=== PATIENT | male | born 1965 | race Caucasian/White ===

== ENCOUNTER 2018-02-16 15:40 | Emergency (ER) | payer OTHER ==
--- NOTE | 2018-02-16 16:24 | EDM.PDOC ---
ED HPI GENERAL MEDICAL PROBLEM - General Chief Complaint: Laceration Stated Complaint: LEFT FINGER LAC Time Seen by Provider: 02/16/18 16:18 Source of Information: Reports: Patient History Limitations: Reports: No Limitations - History of Present Illness INITIAL COMMENTS - FREE TEXT/NARRATIVE: Patient is a 53-year-old male who presents ED complaining of a laceration to the distal phalanx of the left fourth finger. Patient states the finger was crushed between a 1 inch metal plate. He was evaluated at the occupational med clinic with instructions to come to the ED for further evaluation. Tetanus status was up-to-date. Pain is localized with no additional concerns to the remaining fingers or hand. Patient last ate at 12:30 today. Otherwise denies any additional combines. Left 4-Ring finger Pain Score (Numeric/FACES): 3 - Related Data Allergies Allergy/AdvReac Type Severity Reaction Status Date / Time acetaminophen [From Vicodin] Allergy Other Verified 02/16/18 16:06 hydrocodone [From Vicodin] Allergy Other Verified 02/16/18 16:06 Home Meds: Home Meds Cephalexin [Keflex] 500 mg PO TID #30 capsule 02/16/18 [Rx] traMADol HCl [Tramadol HCl] 50 mg PO Q6H PRN #20 tablet 02/16/18 [Rx] Past Medical History - Past Health History Medical/Surgical History: Denies Medical/Surgical History - Past Surgical History HEENT Surgical History: Reports: Cataract Surgery, Tonsillectomy GI Surgical History: Reports: Appendectomy, Cholecystectomy, Colonoscopy Social & Family History - Tobacco Use Smoking Status *Q: Never Smoker Second Hand Smoke Exposure: No - Caffeine Use Caffeine Use: Reports: None - Recreational Drug Use Recreational Drug Use: No ED ROS GENERAL - Review of Systems Review Of Systems: See Below Musculoskeletal: Reports: Other (Pain to the left fourth finger. No pain to the remaining fingers, hand, wrist.) Skin: Reports: Other (Laceration to the distal tip of the finger of the fourth finger of the left hand.) Neurological: Denies: Numbness, Tingling ED EXAM, SKIN/RASH Exam: See Below Exam Limited By: No Limitations General Appearance: Alert, WD/WN, No Apparent Distress Ears: Hearing Grossly Normal Nose: Normal Inspection Throat/Mouth: Normal Voice, No Airway Compromise Head: Atraumatic, Normocephalic Neck: Normal Inspection, Supple Respiratory/Chest: No Respiratory Distress, No Accessory Muscle Use Cardiovascular: Normal Peripheral Pulses, Regular Rate, Rhythm Peripheral Pulses: 2+: Radial (L) Extremities: Other (Left fourth finger: Laceration to the distal phalanx with portion of the soft tissue displaced from the bone. Pain is localized. No sensory changes noted. Bleeding controlled with direct pressure. No pain with palpation the remainder fingers and hand.) Neurological: Alert, Oriented, CN II-XII Intact, Normal Cognition, No Motor/ Sensory Deficits Psychiatric: Normal Affect, Normal Mood Skin: Warm, Dry, Normal Color Course - Vital Signs Last Recorded V/S: Last Vital Signs Temp 98.2 F 02/16/18 16:07 Pulse 77 02/16/18 16:07 Resp 18 02/16/18 16:07 BP 148/86 H 02/16/18 16:07 Pulse Ox 99 02/16/18 16:07 - Orders/Labs/Meds Orders: Active Orders 24 hr Category Date Time Status Fingers Fourth Digit Lt F3 [CR] Stat Exams 02/16/18 16:15 Taken Meds: Medications Discontinued Medications Generic Name Dose Route Start Last Admin Trade Name Freq PRN Reason Stop Dose Admin Cefazolin Sodium 1 gm 02/16/18 17:16 02/16/18 17:50 Ancef IM 02/16/18 17:17 1 gm ONETIME ONE Administration Lidocaine HCl 20 ml 02/16/18 16:46 02/16/18 17:53 Xylocaine 1% INJECT 02/16/18 16:47 Not Given ONETIME ONE Lidocaine HCl Confirm 02/16/18 16:50 02/16/18 17:51 Xylocaine 1% Administered 02/16/18 16:51 50 ml Dose Administration 50 ml .ROUTE .STK-MED ONE - Re-Assessments/Exams Free Text/Narrative Re-Assessment/Exam: Patient is a 53-year-old male who presents to the ED complaining of a laceration to the distal phalanx of the left fourth finger. Patient states the finger was crushed between a 1 inch metal plate. He was evaluated at the occupational med clinic with instructions to come to the ED for further evaluation. Tetanus status was up-to-date. Pain is localized with no additional concerns to the remaining fingers or hand. Patient last ate at 12:30 today. Otherwise denies any additional combines. X-ray of the left fourth finger will be obtained. X-ray of the left fourth finger reveals a comminuted fracture to the distal phalanx. 1711 I have spoke with Dr. Teixeira. Suggested Ancef 1 gram and keflex PO with splint and dressing in place upon discharge. Have patient call his office tomorrow a.m. and will attempt to arrange appt with [facility]. If unable to he may manage. I have ordered ancef 1 gram IM. Patient has reported allergy to hydrocodone. He states he gets itchy with taking it. We have changed to tramadol. Return precautions discussed with the patient. Departure - Departure Time of Disposition: 17:18 Disposition: Home, Self-Care 01 Condition: Good Clinical Impression: Crush injury Open fracture of finger, distal phalanx Qualifiers: Encounter type: initial encounter Finger: ring finger Fracture alignment: displaced Laterality: left Qualified Code(s): S62.635B - Displaced fracture of distal phalanx of left ring finger, initial encounter for open fracture - Discharge Information Prescriptions: Cephalexin [Keflex] 500 mg PO TID #30 capsule traMADol HCl [Tramadol HCl] 50 mg PO Q6H PRN #20 tablet PRN Reason: Pain (Severe 7-10) Instructions: Finger Fracture, Flhe-co-Nutn, Crush Injury of the Hand, Easy-to- Read Referrals: PCP,None [Primary Care Provider] - Forms: ED Department Discharge Additional Instructions: Keep dressing and splint in place until evaluated by Dr. Teixeira tomorrow. Call his office in the a.m. to arrange appt to be evaluated. Take the keflex as prescribed. Elevate when able to reduce pain. Apply ice to the affected area 4 times a day, 20 minutes in duration, do not apply directly on the skin. May utilize tylenol and ibuprofen in alternating fashion for pain. For severe pain take tramadol 1-2 every 6 hrs. Please monitor for any new or worsening symptoms. If so return back to the E.D. - My Orders Last 24 Hours: My Active Orders 02/16/18 16:15 Fingers Fourth Digit Lt F3 [CR] Stat - Assessment/Plan Last 24 Hours: My Active Orders 02/16/18 16:15 Fingers Fourth Digit Lt F3 [CR] Stat
[2018-02-16] MEDS ORDERED: Lidocaine 1% 20 ML MDV INJECT ONE (16:46)
[2018-02-16] MEDS ORDERED: Lidocaine 1% 50 ML MDV ONE (16:50)
[2018-02-16] MEDS ORDERED: ceFAZolin 1 GM Vial IM ONE (17:16)
--- NOTE | 2018-02-17 06:52 | CR ---
Left fourth finger: Four views of the left fourth finger were obtained. Comparison: No previous study. Comminuted and mildly displaced fracture is seen within the distal phalanx of the fourth finger. Soft tissue swelling is noted. No proximal bony abnormality is seen. Small radiopacity projected between the third and fourth fingers and uncertain if this represents soft tissue foreign body within or on top of the skin. Impression: 1. Comminuted and mildly displaced fracture within the distal phalanx of the fourth finger. 2. Possible foreign body between the third and fourth fingers as noted above. 3. Soft tissue swelling. Diagnostic code #3
== END 2018-02-16 18:25 | disposition home or self-care (01) ==
LOC: JD.ED 15:40
DX: S67.195A Crushing injury of left ring finger, initial encounter (principal); S62.635B Displaced fracture of distal phalanx of left ring finger, initial encounter for open fracture; Z88.8 Allergy status to other drugs, medicaments and biological substances; Z88.5 Allergy status to narcotic agent; W23.0XXA Caught, crushed, jammed, or pinched between moving objects, initial encounter
CPT/HCPCS: 73140; 96372; 99283; J0690; 29125